=== PATIENT | male | born 1995 | race Two or more races ===

== ENCOUNTER 2016-11-13 02:50 | Emergency (ER) | payer MEDICAID ==
[~2016-11-13] VITALS: Ht 167.6 cm; Wt 56.7 kg
[2016-11-13 03:50] VITALS: BP 136/73
[2016-11-13] MEDS ORDERED: LIDOCAINE 1% HCL (LOCAL ANESTH.) INJ 20ML MDV ONE (04:01)
[2016-11-13] MEDS ORDERED: NEOMYCIN-BACITRACIN-POLYM UNITDOSE PKG TOP OINT TOP ONE (04:01)
== END 2016-11-13 05:47 | disposition home or self-care (01) ==
LOC: ER 02:58
DX: S01.21XA Laceration without foreign body of nose, initial encounter (principal); S01.112A Laceration without foreign body of left eyelid and periocular area, initial encounter; S00.83XA Contusion of other part of head, initial encounter; S80.12XA Contusion of left lower leg, initial encounter; V43.52XA Car driver injured in collision with other type car in traffic accident, initial encounter; Y93.89 Activity, other specified; Y92.89 Other specified places as the place of occurrence of the external cause; Y99.8 Other external cause status
CPT/HCPCS: 12011; 70450; 70486; 73560; 73590; 99284; J2001